=== PATIENT | female | born 1980 | race Caucasian/White ===

== ENCOUNTER 2022-06-29 20:35 | Inpatient (IN) | payer BC, OTHER ==
[2022-06-29 23:08] VITALS: BMI 26.3
[2022-06-29] MEDS ORDERED: MAG HYDROX/AL HYDROX/SIMETH 30 ML UNIT-DOSE CUP PO PRN (23:19)
[2022-06-29] MEDS ORDERED: P-EPHED 60MG/TRIPROLIDI 2.5MG TABLET PO PRN (23:19)
[2022-06-29] MEDS ORDERED: hydrOXYzine PAMOATE 25 MG CAPSULE (FP) PO PRN (23:19)
[2022-06-29] MEDS ORDERED: MAGNESIUM CITRATE 300 ML BOTTLE PO PRN (23:19)
[2022-06-29] MEDS ORDERED: METHOCARBAMOL 500 MG TABLET PO PRN (23:19)
[2022-06-29] MEDS ORDERED: IBUPROFEN 600 MG TABLET (FP) PO PRN (23:19)
[2022-06-29] MEDS ORDERED: MELATONIN 5 MG TABLETS PO PRN (23:19)
[2022-06-29] MEDS ORDERED: ONDANSETRON *ODT* 4 MG TABLET SL PRN (23:19)
[2022-06-29] MEDS ORDERED: BISMUTH SUBSALICYLATE 524 MG/30 ML PO PRN (23:19)
[2022-06-29] MEDS ORDERED: guaiFENesin 200 MG/10 ML 10 ML UNIT-DOSE CUPS PO PRN (23:19)
[2022-06-29] MEDS ORDERED: DICYCLOMINE HCL 10 MG CAPSULE PO PRN (23:19)
[2022-06-29] MEDS ORDERED: LOPERAMIDE HCL 2 MG CAPSULE PO PRN (23:19)
[2022-06-29] MEDS ORDERED: IBUPROFEN 400 MG TABLET (FP) PO PRN (23:19)
[2022-06-29] MEDS ORDERED: ACETAMINOPHEN 325 MG TABLET (FP) PO PRN ×2 (23:19)
[2022-06-29] MEDS ORDERED: MAGNESIUM HYDROX 2400MG/30ML ORAL SUSPENSION 30 ML CUP PO PRN (23:19)
[2022-06-29] MEDS ORDERED: BENZOCAINE/MENTHOL (CHLORASEPTIC ) LOZENGE MM PRN (23:19)
[2022-06-29] MEDS ORDERED: chlordiazePOXIDE HCL 25 MG CAPSULE PO PRN (23:21)
[2022-06-30] MEDS: chlordiazePOXIDE HCL 25 MG CAPSULE PO SCH ×4 (01:27→18:33)
[2022-06-30] MEDS ORDERED: PRENATAL VITAMINS W/ FOLIC ACID TABLET (FP) PO SCH (10:00)
[2022-06-30 11:23] LABS: HEMOGLOBIN 14.1 GM/dL (10.7-15.3); MCH 32.9 pg (25.7-33.7); MCHC 33.6 g/dl (32.0-36.0); MEAN CELL VOLUME 97.9 fl (80-96); MEAN PLT VOLUME 9.7 fl (7.5-11.1); PLATELET COUNT 170 10^3/uL (134-434); RBC 4.29 M/mm3 (3.60-5.2); RDW 13.1 % (11.6-15.6); WHITE BLOOD COUNT 8.1 K/mm3 (4.0-10.0)
[2022-06-30 12:05] LABS: BLOOD UREA NITROGEN 12.1 mg/dL (7-18); CALCIUM 8.9 mg/dL (8.5-10.1)
[2022-06-30 12:06] LABS: ALBUMIN 3.3 g/dl (3.4-5.0)
[2022-06-30 12:08] LABS: CREATININE 0.8 mg/dL (0.55-1.3)
[2022-06-30 17:09] VITALS: BP 113/73; PULSE 71; RESP 17; TEMP 97.5
[2022-06-30] MEDS ORDERED: THIAMINE HCL 100 MG TABLET (FP) PO SCH (22:00)
[2022-07-01] MEDS ORDERED: chlordiazePOXIDE HCL 25 MG CAPSULE PO SCH (05:00)
[2022-07-02] MEDS ORDERED: chlordiazePOXIDE HCL 10 MG CAPSULE PO PRN
[2022-07-02] MEDS ORDERED: chlordiazePOXIDE HCL 10 MG CAPSULE PO SCH (05:00)
[2022-07-03] MEDS ORDERED: chlordiazePOXIDE HCL 10 MG CAPSULE PO ONE (05:00)
== END 2022-06-30 19:15 | disposition left against medical advice (07) | DRG 894 ==
LOC: EDBD 20:35 → YASAS 20:35 → Y3N 23:31
PROVIDERS: ADMIT Allergy & Immunology; ATTEND Surgery
PROC: HZ2ZZZZ Detoxification Services for Substance Abuse Treatment (ICD-10-PCS; principal; 2022-06-28)
DX: F10.230 Alcohol dependence with withdrawal, uncomplicated (principal); F12.10 Cannabis abuse, uncomplicated; F10.280 Alcohol dependence with alcohol-induced anxiety disorder; F10.282 Alcohol dependence with alcohol-induced sleep disorder; F32.A Depression, unspecified; Z91.410 Personal history of adult physical and sexual abuse
CPT/HCPCS: 36415; 80053; 85027; 86780; C9803-CS; U0003; U0005